=== PATIENT | female | born 1995 | race Two or more races ===

== ENCOUNTER 2018-04-13 14:00 | Emergency (ER) | payer MEDICAID ==
[~2018-04-13] VITALS: Ht 154.9 cm; Wt 93.0 kg
[2018-04-13] MEDS ORDERED: TETANUS-DIPTH-ACEL PERTUSSIS 0.5ML SYRG IM ONE (16:45)
[2018-04-13 17:20] VITALS: BP 128/67
== END 2018-04-13 17:52 | disposition home or self-care (01) ==
LOC: ER 14:00
DX: O26.893 Other specified pregnancy related conditions, third trimester (principal); S60.222A Contusion of left hand, initial encounter; S80.12XA Contusion of left lower leg, initial encounter; Z3A.38 38 weeks gestation of pregnancy; V43.52XA Car driver injured in collision with other type car in traffic accident, initial encounter; Y93.89 Activity, other specified; Y92.488 Other paved roadways as the place of occurrence of the external cause; Y99.8 Other external cause status
CPT/HCPCS: 73120; 73590; 90471; 90715

== ENCOUNTER 2018-04-13 14:05 | Observation (INO) | payer MEDICAID, OTHER | END 2018-04-13 15:55 | disposition home or self-care (01) | DRG 781 | LOC: LDRP 14:05 | PROVIDERS: ADMIT Specialist; ATTEND Specialist | DX: O26.893 Other specified pregnancy related conditions, third trimester (principal); O62.9 Abnormality of forces of labor, unspecified; R51 Headache; M54.2 Cervicalgia; M79.642 Pain in left hand; M79.662 Pain in left lower leg; V49.9XXA Car occupant (driver) (passenger) injured in unspecified traffic accident, initial encounter; Y93.89 Activity, other specified; Y92.410 Unspecified street and highway as the place of occurrence of the external cause; Y99.8 Other external cause status; Z3A.39 39 weeks gestation of pregnancy | CPT/HCPCS: 59025; 76805; 81002; G0378 ==